=== PATIENT | female | born 1950 | race Caucasian/White ===

== ENCOUNTER 2019-02-14 06:48 | Day surgery (SDC) | payer MEDICARE, OTHER ==
[~2019-02-14] VITALS: Ht 152.4 cm; Wt 79.5 kg
[~2019-02-14 06:48] MED LIST: ASPI-555 PO; ATOR20TA65 PO; BIOT10005 PO; CARV6.25 PO; CITA20TA17 PO; CLOT10PO PO; DEXA0.5E4 PO; FERR324T4 PO; LACT1CAP78 PO; LOSA1TAB42 PO; SODIUM CHLORIDE 0.9% 1000ML 1,000 ML IV ONE
[2019-02-14 07:45] VITALS: BP 150/71
[2019-02-14] MEDS ORDERED: TRIAMCINOLONE ACETONIDE 40 MG/ML 1ML VIAL INJ SCH (07:45)
[2019-02-14] MEDS ORDERED: PROPOFOL 10 MG/ML 20ML VIAL IV ONE (08:49)
[2019-02-14 09:07] VITALS: BP 132/67
[2019-02-14 09:17] VITALS: BP 151/81
[2019-02-14 09:26] VITALS: BP 156/73
== END 2019-02-14 09:35 | disposition home or self-care (01) ==
LOC: DAH 06:48 → ENDO 06:48
PROVIDERS: ATTEND Internal Medicine
DX: K22.2 Esophageal obstruction (principal); K31.89 Other diseases of stomach and duodenum; Z98.84 Bariatric surgery status; E78.5 Hyperlipidemia, unspecified; I10 Essential (primary) hypertension; F41.9 Anxiety disorder, unspecified; F32.9 Major depressive disorder, single episode, unspecified; D64.9 Anemia, unspecified; Z68.34 Body mass index [BMI] 34.0-34.9, adult; Z79.899 Other long term (current) drug therapy; Z98.890 Other specified postprocedural states; Z90.710 Acquired absence of both cervix and uterus; Z98.49 Cataract extraction status, unspecified eye
CPT/HCPCS: 43236; 43239; 43249; A4606; J2704; J3301; J7030

== ENCOUNTER 2020-10-22 05:58 | Day surgery (SDC) | payer OTHER ==
[2020-10-22] VITALS (7 sets, daily range): BP systolic 126–163; BP diastolic 58–80
[~2020-10-22] VITALS: Ht 152.4 cm; Wt 64.4 kg
[~2020-10-22 05:58] MED LIST changes: +ASCO1TAB46 PO; -ASPI-555 PO; +ASPI-556 PO; -BIOT10005 PO; +CALC-877 PO; +CARV12.511 PO; -CARV6.25 PO; -CITA20TA17 PO; +CITA40TA6 PO; -CLOT10PO PO; +CYAN1TAB44 PO; -DEXA0.5E4 PO; +ENZY1CAP5 PO; +GOLI PO; +MV-M1TAB20 PO; +MVIT PO; -SODIUM CHLORIDE 0.9% 1000ML 1,000 ML IV ONE; +[UNRECOGNIZED DRUG - CODE] PO; +[UNRECOGNIZED DRUG - OTHER] PO
[2020-10-22] MEDS ORDERED: SODIUM CHLORIDE 0.9% 1000ML 1,000 ML IV ONE (06:14)
[2020-10-22] MEDS ORDERED: PROPOFOL 10 MG/ML 20ML VIAL IV ONE ×2 (08:11→08:47)
[2020-10-22] MEDS ORDERED: TRIAMCINOLONE ACETONIDE 40 MG/ML 1ML VIAL IM SCH (08:30)
== END 2020-10-22 09:40 ==
LOC: ENDO 05:58 → DAH 05:58 → ENDO 09:40
PROVIDERS: ATTEND Internal Medicine Gastroenterology
DX: R13.10 Dysphagia, unspecified (principal); K22.2 Esophageal obstruction; D12.6 Benign neoplasm of colon, unspecified; K44.9 Diaphragmatic hernia without obstruction or gangrene; E78.5 Hyperlipidemia, unspecified; I10 Essential (primary) hypertension; K29.70 Gastritis, unspecified, without bleeding; F41.9 Anxiety disorder, unspecified; F32.9 Major depressive disorder, single episode, unspecified; Z98.84 Bariatric surgery status; Z90.89 Acquired absence of other organs; Z79.82 Long term (current) use of aspirin; Z79.899 Other long term (current) drug therapy; Z20.828 Contact with and (suspected) exposure to other viral communicable diseases
CPT/HCPCS: 43236; A4215 ×2; A4216; A4221; A4222; A4223; A4606; A4620; A4657; A4663; C9803; J2704 ×2; J3301; J7030; U0003

== ENCOUNTER 2021-11-26 05:54 | Observation (INO) | payer MEDICARE ==
[2021-11-24 11:20] LABS: HEMATOCRIT 36.8 % (36-48); MEAN CORPUSCULAR HEMOGLOBIN 29.2 pg (27.0-33.0); MEAN CORPUSCULAR HGB CONC 32.6 g/dL (32.0-36.0); MEAN CORPUSCULAR VOLUME 89.5 fL (79-99); RED BLOOD CELL COUNT(AUTO) 4.11 MIL/uL (4.00-5.50); RED CELL DISTRIBUTION WIDTH 14.2 % (11.0-15.5); WHITE BLOOD COUNT (AUTO) 6.2 K/uL (4.8-10.8)
[2021-11-24 11:21] LABS: BASOPHILS % (AUTO) 1.1 % (0.0-5.0); EOSINOPHILS % (AUTO) 5.5 % (0.0-8.0); LYMPHOCYTES % (AUTO) 27.2 % (21.0-51.0); MONOCYTES % (AUTO) 11.3 % (3.0-13.0); NEUTROPHILS % (AUTO) 54.7 % (40.0-77.0); PLATELET COUNT (AUTO) 238 K/uL (130-400)
[2021-11-24 12:12] LABS: CREATININE 1.3 mg/dL (0.5-1.5)
[2021-11-25 10:24] LABS: CREATININE 1.4 mg/dL (0.5-1.5); POTASSIUM 5.6 mmol/L (3.5-5.1)
[2021-11-25 11:09] VITALS: BP 185/85
[~2021-11-26] VITALS: Ht 149.9 cm; Wt 69.8 kg
[2021-11-26] VITALS (24 sets, daily range): BP systolic 126–168; BP diastolic 68–79
[2021-11-26] MEDS: CEFAZOLIN SODIUM 2 GM VIAL IV SCH ×2 (05:00→07:40)
[~2021-11-26 05:54] MED LIST changes: +CITA-108 PO; -CITA40TA6 PO
[2021-11-26] MEDS ORDERED: LACTATED RINGERS 1000ML 1,000 ML IV ONE (06:11)
[2021-11-26] MEDS ORDERED: BUPIVACAINE/EPI/PF 0.25% 30ML VIAL IJ ONE (06:47)
[2021-11-26] MEDS ORDERED: THROMBIN-JMI 20000 UNIT KIT TP ONE (06:47)
[2021-11-26] MEDS ORDERED: CEFAZOLIN SODIUM 1 GM VIAL ONE ×2 (06:47→07:00)
[2021-11-26] MEDS ORDERED: SUCCINYLCHOLINE CHLORIDE 20 MG/ML 10 ML VIAL ONE (06:52)
[2021-11-26] MEDS ORDERED: LIDOCAINE PF 100MG/5ML (2%) SYRINGE 5ML ONE (06:52)
[2021-11-26] MEDS ORDERED: MIDAZOLAM HCL 1 MG/ML 2ML VIAL ONE (06:53)
[2021-11-26] MEDS ORDERED: NEOSTIGMINE 5MG/5ML SYR IV ONE (06:53)
[2021-11-26] MEDS ORDERED: GLYCOPYRROLATE 1 MG/5 ML SYRINGE ONE (06:53)
[2021-11-26] MEDS ORDERED: ONDANSETRON 4MG INJ ONE (06:53)
[2021-11-26] MEDS ORDERED: DEXAMETHASONE SOD PHOSPHATE 10MG/ML 1ML VIAL ONE ×2 (06:53→06:55)
[2021-11-26] MEDS ORDERED: PROPOFOL 10 MG/ML 20ML VIAL IV ONE (06:53)
[2021-11-26] MEDS ORDERED: FENTANYL CITRATE PF 50 MCG/1 ML 2ML VIAL ONE (06:54)
[2021-11-26] MEDS ORDERED: ROCURONIUM 10MG/1ML SYR 10 MG/ML ML ONE ×2 (06:54→07:58)
[2021-11-26 07:00] LABS: CREATININE 1.4 mg/dL (0.5-1.5); POTASSIUM 5.2 mmol/L (3.5-5.1)
[2021-11-26] MEDS ORDERED: ARTIFICIAL TEARS 3.5 GM OINTMENT ONE (10:08)
[2021-11-26] MEDS ORDERED: PHENYLEPHRINE HCL 10 MG/ML 1ML VIAL IV ONE (10:08)
[2021-11-26] MEDS ORDERED: CA 600MG+VIT D 400 UNIT TAB 1 TAB TABLET PO SCH (10:49)
[2021-11-26] MEDS ORDERED: FOLIC ACID PO SCH (10:53)
[2021-11-26] MEDS ORDERED: CYANOCOBALAMIN PO SCH (10:53)
[2021-11-26] MEDS ORDERED: FAMOTIDINE 20MG TAB PO SCH (10:54)
[2021-11-26] MEDS ORDERED: LACTOBACILLUS RHAMNOSUS GG 1 EACH CAP.SPRINK PO SCH (10:55)
[2021-11-26] MEDS ORDERED: LOSARTAN 100 MG TABLET PO SCH (10:57)
[2021-11-26] MEDS ORDERED: 0.9%NACL 10ML VIAL IVP PRN (11:00)
[2021-11-26] MEDS ORDERED: CEFAZOLIN SODIUM 1 GM VIAL IVP SCH (11:00)
[2021-11-26] MEDS ORDERED: PROMETHAZINE HCL 25 MG/ML 1ML AMPULE IM PRN (11:00)
[2021-11-26] MEDS: LACTATED RINGERS 1000ML 1,000 ML IV SCH ×2 (11:00→20:57)
[2021-11-26] MEDS ORDERED: MORPHINE 2 MG SYG IVP PRN (11:00)
[2021-11-26] MEDS ORDERED: HYDROCODONE/ACETAMINOPHEN 5/325 MG TAB PO PRN (11:00)
[2021-11-26] MEDS: DEXAMETHASONE SOD PHOSPHATE 4 MG/ML 1ML VIAL IVP SCH ×3 (11:00→23:14)
[2021-11-26] MEDS ORDERED: FERROUS SULFATE 325 MG TABLET.DR PO SCH (11:03)
[2021-11-26] MEDS ORDERED: HYDROCHLOROTHIAZIDE 25 MG TABLET PO SCH (11:04)
[2021-11-26] MEDS ORDERED: OMEP40CA21 PO (12:34)
[2021-11-26] MEDS ORDERED: LOSA100T58 PO (12:34)
[2021-11-26] MEDS: CARVEDILOL 12.5 MG TABLET PO SCH (20:57)
[2021-11-26] MEDS ORDERED: CITALOPRAM 20 MG TABLET PO SCH (21:00)
[2021-11-26] MEDS ORDERED: ATORVASTATIN 20 MG TABLET PO SCH (21:00)
[2021-11-27 04:35] VITALS: BP 150/78
[2021-11-27] MEDS: DEXAMETHASONE SOD PHOSPHATE 4 MG/ML 1ML VIAL IVP SCH (05:29)
[2021-11-27 08:05] VITALS: BP 159/84
[2021-11-27 08:29] VITALS: BP 159/84
[2021-11-27] MEDS: CARVEDILOL 12.5 MG TABLET PO SCH (08:29)
[2021-11-27] MEDS ORDERED: MULTIVITAMIN WITH MINERALS TABLET PO SCH (09:00)
[2021-11-27] MEDS ORDERED: GOLI PO SCH (09:00)
[2021-11-27] MEDS ORDERED: MULTIVITAMIN TABLET PO SCH (09:00)
[2021-11-27] MEDS ORDERED: LOSARTAN 100 MG TABLET PO SCH (09:00)
[2021-11-27] MEDS ORDERED: [UNRECOGNIZED DRUG - OTHER] PO SCH (09:00)
[2021-11-27] MEDS ORDERED: ASPIRIN 81 MG EC TAB PO SCH (09:00)
[2021-11-27] MEDS ORDERED: PANTOPRAZOLE 40 MG TAB DR PO SCH (09:00)
[2021-11-27] MEDS ORDERED: ASCORBIC ACID 500 MG TAB PO SCH (09:00)
[2021-11-27] MEDS ORDERED: ATORVASTATIN 20 MG TABLET PO SCH (09:00)
[2021-11-27] MEDS ORDERED: KETO10 PO (10:51)
[2021-11-28] MEDS ORDERED: FERROUS SULFATE 325 MG TABLET.DR PO SCH (09:00)
== END 2021-11-27 12:10 | disposition home or self-care (01) ==
LOC: DAH 05:54 → DAHIP 05:55 → 3AH 11:50
PROVIDERS: ADMIT Neurological Surgery; ATTEND Neurological Surgery
DX: M47.22 Other spondylosis with radiculopathy, cervical region (principal); Z20.822 Contact with and (suspected) exposure to COVID-19; I10 Essential (primary) hypertension; K21.9 Gastro-esophageal reflux disease without esophagitis; E78.5 Hyperlipidemia, unspecified; M25.78 Osteophyte, vertebrae; Z90.710 Acquired absence of both cervix and uterus; Z98.84 Bariatric surgery status; Z90.49 Acquired absence of other specified parts of digestive tract; Z79.899 Other long term (current) drug therapy; Z98.890 Other specified postprocedural states
CPT/HCPCS: 20930; 22551; 22552; 22845; 36415 ×3; 71045; 72020; 80048 ×3; 85025; 87635; 96374; 96375; 96376 ×2; A4215; A4221; A4222; A4223; A4344; A4600; A4649 ×2; A4663; A6010; C1776; C9803; G0378 ×24; J0330; J0690 ×3; J1100 ×5; J2001; J2250; J2370; J2405; J2704; J2710; J3010; J3490 ×2; J7030; J7120 ×3

== ENCOUNTER → 2021-12-26 | Outpatient (CLI) | payer MEDICARE ==
[~2021-12-26] MED LIST changes: -ASCO1TAB46 PO; -CALC-877 PO; -CYAN1TAB44 PO; -ENZY1CAP5 PO; -FERR324T4 PO; -GOLI PO; -LACT1CAP78 PO; +LOSA100T58 PO; -LOSA1TAB42 PO; -MV-M1TAB20 PO; -MVIT PO; +OMEP40CA21 PO; -[UNRECOGNIZED DRUG - CODE] PO; -[UNRECOGNIZED DRUG - OTHER] PO
== END | disposition home or self-care (01) ==
LOC: RAH 09:05
PROVIDERS: ATTEND Neurological Surgery
DX: M47.812 Spondylosis without myelopathy or radiculopathy, cervical region (principal); Z98.1 Arthrodesis status
CPT/HCPCS: 72040

== ENCOUNTER → 2022-09-18 | Outpatient (CLI) | payer MEDICARE | END | disposition home or self-care (01) | LOC: RAH 11:40 | PROVIDERS: ATTEND Internal Medicine | DX: M47.812 Spondylosis without myelopathy or radiculopathy, cervical region (principal); M54.2 Cervicalgia | CPT/HCPCS: 72040 ==

== ENCOUNTER → 2022-12-21 | Outpatient (CLI) | payer MEDICARE | END | disposition home or self-care (01) | LOC: RAH 11:51 | PROVIDERS: ATTEND Internal Medicine | DX: M47.816 Spondylosis without myelopathy or radiculopathy, lumbar region (principal); M54.32 Sciatica, left side; M54.50 Low back pain, unspecified | CPT/HCPCS: 72100; 72200 ==

== ENCOUNTER → 2024-08-08 | Outpatient (CLI) | payer MEDICARE ==
[~2024-08-08] MED LIST changes: -LOSA100T58 PO; +LOSA100T59 PO
== END | disposition home or self-care (01) ==
LOC: RAH 15:16
PROVIDERS: ATTEND Nurse Practitioner Family
DX: M17.11 Unilateral primary osteoarthritis, right knee (principal); M79.89 Other specified soft tissue disorders; M47.815 Spondylosis without myelopathy or radiculopathy, thoracolumbar region; R07.81 Pleurodynia; W19.XXXA Unspecified fall, initial encounter
CPT/HCPCS: 71046; 71100; 73562

== ENCOUNTER 2025-09-04 07:26 | Day surgery (SDC) | payer MEDICARE ==
[2025-09-04] VITALS (10 sets, daily range): BP systolic 141–157; BP diastolic 66–76; PULSE 55–79; RESP 13–18; TEMP 97–98.4
[~2025-09-04] VITALS: Ht 149.9 cm; Wt 64.9 kg
[2025-09-04] MEDS ORDERED: AMLO-257 PO (09:08)
[2025-09-04] MEDS ORDERED: PANT40TA54 PO (09:09)
[2025-09-04] MEDS ORDERED: FLUO20TA29 PO (09:09)
[2025-09-04] MEDS ORDERED: FOLI1TAB85 PO (09:09)
[2025-09-04] MEDS ORDERED: FAMO40TA7 PO (09:09)
[2025-09-04] MEDS ORDERED: CEVI30CA7 PO (09:10)
[2025-09-04] MEDS: 0.9%NACL 1000ML 1,000 ML IV ONE (09:11)
[2025-09-04] MEDS ORDERED: TRIAMCINOLONE ACETONIDE 40 MG/ML 1ML VIAL INJ SCH (12:00)
== END 2025-09-04 13:23 | disposition home or self-care (01) ==
LOC: ENDO 07:26 → DAH 07:26 → ENDO 13:23
PROVIDERS: ATTEND Internal Medicine Gastroenterology
DX: R13.10 Dysphagia, unspecified (principal); K22.10 Ulcer of esophagus without bleeding; K22.2 Esophageal obstruction; K44.9 Diaphragmatic hernia without obstruction or gangrene; I10 Essential (primary) hypertension; E78.5 Hyperlipidemia, unspecified; L43.8 Other lichen planus; F41.9 Anxiety disorder, unspecified; M19.90 Unspecified osteoarthritis, unspecified site; F32.A Depression, unspecified; Z98.84 Bariatric surgery status; Z98.0 Intestinal bypass and anastomosis status; Z86.0100 Personal history of colon polyps, unspecified; Z90.710 Acquired absence of both cervix and uterus; Z98.890 Other specified postprocedural states; Z90.89 Acquired absence of other organs; Z98.42 Cataract extraction status, left eye; Z98.41 Cataract extraction status, right eye; Z79.82 Long term (current) use of aspirin; Z79.899 Other long term (current) drug therapy
CPT/HCPCS: 43249; 43236; 43239; J7030 ×2; J2704 ×2; J3301; C1726; A4620; A7002; J3490